=== PATIENT | female | born 1940 | race Caucasian/White ===

== ENCOUNTER 2017-04-06 12:21 | Day surgery (SDC) | payer MEDICARE ==
[2017-04-06 13:04] LABS: #Monocytes 1.3 thou/uL (0.11-0.59); #Neutrophils 13.7 thou/uL (1.40-6.50); %Basophils 0.1 % (0.0-1.0); %Eosinophils 0.2 % (0.0-10.0); %Lymphocytes 6.2 % (21.0-51.0); %Monocytes 8.3 % (0.0-10.0); Hematocrit 32.8 % (36.0-47.0); Mean Platelet Volume 6.7 fL (7.4-10.4); Red Blood Cell (RBC) Count 3.62 mill/uL (4.20-5.40); White Blood Cell (WBC) Count 16.1 thou/uL (4.8-10.8)
[2017-04-06 13:10] LABS: PTT 32.9 SEC (22.9-36.1); Prothrombin Time 14.8 SEC (12.0-14.7)
[2017-04-06] MEDS ORDERED: ceFAZolin Sodium 1 GM VIAL ONE (13:16)
[2017-04-06 13:25] LABS: Anion Gap 12 mmol/L (10-20); BUN (Urea Nitrogen) 25 mg/dL (9.8-20.1); Calc. Creatinine Clearance 0 mL/min (70-130); Calcium 8.6 mg/dL (7.8-10.44); Carbon Dioxide 26 mmol/L (23-31); Chloride 97 mmol/L (98-107); Estimated GFR-MDRD 36
--- NOTE | 2017-04-06 14:38 | CT ---
CT BRAIN WITHOUT CONTRAST: Date: 04/06/17 HISTORY: Fall in bathroom. Trauma. FINDINGS: No acute territorial infarct or hemorrhage. Extensive microangiopathic changes throughout the subcor tical and deep white matter. Moderate atrophy, predominantly of the parietal and temporal lobes. Calvarium is intact. There are air fluid levels in them axillary sinuses bilaterally. Soft tissues are unremarkable. IMPRESSION: 1. No acute intracranial abnormality. 2. Extensive microangiopathic changes. 3. Bitemporal and biparietal atrophy can be seen with Alzheimer's disease. Recommend clinical corre lation. POS: [facility]
--- NOTE | 2017-04-06 15:09 | CT ---
CT CERVICAL SPINE WITHOUT CONTRAST: Date: 04/06/17 HISTORY: Fall in bathroom. Loss of consciousness. COMPARISON: None. FINDINGS: Nondisplaced left nasal bone fracture. Extensive opacification of the maxillary sinuses bilaterally, worse on the left, with some increased density. No displaced fracture of the anterior nasal spine o f the maxilla. There is subcutaneous gas along the right cheek. No orbital floor fracture. No orbita l roof fracture. Zygoma is intact, as well as the mandibular condyles. Mandible is without fracture. Lamina papyracea is intact. IMPRESSION: 1. Nondisplaced posterior left nasal bone fracture. 2. Nondisplaced fracture of the anterior inferior nasal spine of the maxilla. 3. Dense debris within the maxillary sinuses bilaterally with high attenuation can be seen with chr onic sinusitis versus hemosinus. 4. Small volume gas involving the right cheek without a large laceration appreciated. Recommend cor relation for a penetrating wound. A nondisplaced right anterior maxillary sinus fracture cannot be e xcluded, although no displaced fracture is seen. 5. Punctate radiopaque debris along the left cheek which may be within or on the skin. POS: [facility]
[2017-04-06] MEDS ORDERED: Ondansetron HCl/PF 4 MG/2 ML Vial IVP PRN (15:58)
[2017-04-06] MEDS ORDERED: Fentanyl 100 MCG/2 ML VIAL ONE (17:04)
[2017-04-06] MEDS ORDERED: Lidocaine 2% PF 10 ML AMP (For Epidural Use) ONE (17:27)
[2017-04-06] MEDS ORDERED: Ondansetron HCl/PF 4 MG/2 ML Vial ONE (17:27)
[2017-04-06] MEDS ORDERED: Succinylcholine Chloride 20 MG/ML 10 ml SYRINGE FS ONE (17:27)
[2017-04-06] MEDS ORDERED: Dexamethasone 20 MG/5 ML VIAL ONE (17:27)
[2017-04-06] MEDS ORDERED: Propofol 200 MG/20 ML VIAL ONE (17:27)
[2017-04-06] MEDS ORDERED: Bacitracin Zinc Ointment 30 gm TUBE ONE (18:06)
[2017-04-06] MEDS ORDERED: Oxymetazoline HCl 0.05% ( 15 ML ) ONE (18:10)
[2017-04-06] MEDS ORDERED: Meperidine HCl/PF 25 MG/ML VIAL ONE (18:13)
--- NOTE | 2017-04-06 21:29 | OP ---
DATE OF OPERATION: 04/06/2017 PREOPERATIVE DIAGNOSIS: Complex upper lip laceration. POSTOPERATIVE DIAGNOSIS: Complex upper lip laceration. PROCEDURE: Complex closure of right upper lip laceration 4.5 cm. ANESTHESIA: General. PREOPERATIVE NOTE: Ms. Viera is a 77-year-old female who fell in her bathroom and hit her upper li p on a tub. She has a deep laceration on the right upper lip just under the of the nose and a nondisplaced maxillary fracture. She now presents for debridement and closure of this laceration a nd stabilization of the nasal septum. PROCEDURE IN DETAIL: After the patient received adequate general anesthesia, the patient was placed in supine position, prepped and draped in the usual standard fashion. The wound was cleaned with B etadine and then irrigated profusely. The caudal end of the septum was indeed dislocated from the n ab spine. A 4-0 Vicryl suture was then placed through the periosteum of the nasal spine and then placed through the caudal end of the septum and a [id number] suture to hold the cartilaginous s eptum into the spine. This seemed to adequately stabilize the caudal end of the septum. The deep t issues were then reapproximated, muscular stitches were then approximated with a 4-0 Vicryl suture a nd then a 4-0 Monocryl suture was used to reapproximate the subcutaneous tissues and interrupted 6-0 nylon sutures used to reapproximate the skin edges, had a laceration of the lateral nasal wall, ant erior aspect of the inferior turbinate, which was bleeding. A couple of 4-0 chromics were placed in this area to help control the bleeding and tacked together likely. Also had a small perforation in the gingival labial sulcus on the right side that we closed with a couple of 4-0 chromic sutures. Nose was then suctioned clear and bleeding seemed to be adequately controlled. Nose and mouth and s tomach were suctioned clear and the patient was awakened and taken to recovery room in stable condit ion, having tolerated the procedure well. ESTIMATED BLOOD LOSS: Less than 20 mL. SPONGE AND NEEDLE COUNTS: Correct at the end of the case. COMPLICATIONS: None.
--- NOTE | 2017-04-06 21:56 | HP ---
DATE OF CONSULTATION: 04/06/2017 CONSULTING PHYSICIAN: Dr. John Rae, ER physician. REASON FOR CONSULTATION: Deep upper lip laceration and maxillary fracture. HISTORY OF PRESENT ILLNESS: Ms. Viera is a 77-year-old female who earlier today was walking into h er bathroom and fell and hit her face on the tub in the bathroom. The witnessed the inciden t. The patient does not remember much about what happened during that incident. He denies any loss of consciousness. Other than facial pain and bleeding from the upper lip, she denies any other sym ptoms or complaints. She states that her teeth seem to match up well, although she does have some t enderness when she bites down. She denies any change in her vision or neck pain. She has a deep la ceration going underneath the sill of her nose and over to the right mesiolabial crease, it goes amber p down to the maxilla. She has been on medicine for her back and has had multiple falls recently an d feels like she is dizzy and confused while on this medication. PAST MEDICAL HISTORY: Significant for hypertension. PAST SURGICAL HISTORY: Significant for two back surgeries. ALLERGIES: She gets nauseated with CODEINE. SOCIAL HISTORY: Nonsmoker and nondrinker. FAMILY HISTORY: Noncontributory. PHYSICAL EXAMINATION: GENERAL: Well-developed, well-nourished elderly female, in mild distress. HEAD: Normocephalic, atraumatic. EYES: Pupils are equal, round, and reactive to light. Extraocular movements are intact. EARS: Tympanic membranes are intact and clear. NOSE: Shows some old blood crust around the nose, but otherwise, the dorsum of the nose is palpable and stable. No fractures or step-offs are noted. Does have some contusion of the caudal into the nose, but no palpable deviation was noted. Septum is deviated off to the right side. There is no e vidence of any intranasal laceration. Underneath the sill of her nose, she does have an extensive l aceration going across the sill and underneath the ala and then into the right mesiolabial crease. Oral cavity and oropharynx show teeth are in good repair. Occlusion appears to be normal. Maxilla and teeth are stable. She does have some tenderness when she bites down, but no motion was noted. There is some blood in the throat, but no lacerations were noted. No palpable fractures of the pal ate. Jaw is palpably stable. NECK: No significant lymphadenopathy or masses are noted. No tenderness or crepitus is noted. LUNGS: Clear to auscultation. HEART: Rate and rhythm regular without murmur or gallop. ABDOMEN: Soft, without masses, distention, or hepatosplenomegaly. EXTREMITIES: Without clubbing, cyanosis, or edema. NEUROLOGIC: Grossly intact. IMAGING STUDIES: CT scan of the face was reviewed and does show a nondisplaced fracture going throu gh the maxilla. It does not appear to go through the pterygoid bones, so it does not appear to be a complete [place], but there is no evidence of fracture across the palate. Does have some blood in her sinuses, but no other significant injuries were noted. IMPRESSION: Laceration of the upper lip, deep. I talked with her about repairing this under local or doing under anesthesia. She preferred to be done under anesthesia. PLAN: We will plan on taking her to the OR and debriding the wound and closing it under general ane sthesia. She does not feel anything needs to be done to the nondisplaced fracture of the maxilla. This should heal on its own. We will look at it when she is asleep but does not feel anything furth er needs to be done at this time. She understands the indications, benefits, risks, and complicatio ns and consents to the procedure.
== END 2017-04-06 20:00 | disposition home or self-care (01) ==
LOC: ERS 12:21 → SDC 14:58
PROVIDERS: ATTEND Otolaryngology
PROC: 0CQ0XZZ Repair Upper Lip, External Approach (ICD-10-PCS; principal; 2017-04-06)
DX: S01.511A Laceration without foreign body of lip, initial encounter (principal); I10 Essential (primary) hypertension; S01.532A Puncture wound without foreign body of oral cavity, initial encounter; S02.2XXA Fracture of nasal bones, initial encounter for closed fracture; S02.401A Maxillary fracture, unspecified side, initial encounter for closed fracture; W19.XXXA Unspecified fall, initial encounter; Y92.012 Bathroom of single-family (private) house as the place of occurrence of the external cause; Z79.52 Long term (current) use of systemic steroids; Z79.899 Other long term (current) drug therapy; Z88.5 Allergy status to narcotic agent; Z96.1 Presence of intraocular lens
CPT/HCPCS: 36415; 70450; 70486; 80048; 85025; 85610; 85730; G0390; J0690; J1100; J2001; J2175; J2405; J2704; J3010

== ENCOUNTER 2018-02-13 12:12 | Emergency (ER) | payer MEDICARE ==
[2018-02-13 13:40] LABS: #Lymphocytes 1.8 thou/uL (1.20-3.40); #Monocytes 0.6 thou/uL (0.11-0.59); #Neutrophils 6.6 thou/uL (1.40-6.50); %Basophils 0.4 % (0.0-1.0); %Eosinophils 0.1 % (0.0-10.0); %Lymphocytes 19.6 % (21.0-51.0); %Monocytes 6.5 % (0.0-10.0); %Neutrophils 73.4 % (42.0-75.0); Hemoglobin 13.4 g/dL (12.0-16.0); Mean Corpuscular Hemoglobin 29.5 pg (27.0-31.0); Mean Corpuscular Volume 86.6 fL (78.0-98.0); Platelet Count 252 thou/uL (130-400); RBC Distribution Width 14.4 % (11.5-14.5); Red Blood Cell (RBC) Count 4.56 mill/uL (4.20-5.40)
[2018-02-13] MEDS ORDERED: Morphine 4 MG/ML VIAL ONE (13:59)
[2018-02-13 14:14] LABS: ALT (SGPT) 11 U/L (8-55); AST (SGOT) 15 U/L (5-34); Albumin 4.6 g/dL (3.4-4.8); Alkaline Phosphatase 101 U/L (40-150); Anion Gap 16 mmol/L (10-20); BUN (Urea Nitrogen) 14 mg/dL (9.8-20.1); Bilirubin, Total 0.8 mg/dL (0.2-1.2); Calc. Creatinine Clearance 0 mL/min (70-130); Calcium 9.7 mg/dL (7.8-10.44); Carbon Dioxide 24 mmol/L (23-31); Chloride 101 mmol/L (98-107); Estimated GFR-MDRD 67; Globulin 2.8 g/dL (2.4-3.5); Glucose 98 mg/dL (83-110); Magnesium 2.1 mg/dL (1.6-2.6); Potassium 3.6 mmol/L (3.5-5.1); Protein, Total 7.4 g/dL (6.0-8.3); Sodium 137 mmol/L (136-145)
== END 2018-02-13 15:29 | disposition home or self-care (01) ==
LOC: ERS 12:12
DX: G62.9 Polyneuropathy, unspecified (principal); I10 Essential (primary) hypertension
CPT/HCPCS: 80053; 83735; 85025; 93005; 96374; J2270

== ENCOUNTER 2019-05-28 10:19 | Outpatient (CLI) | payer MEDICARE ==
--- NOTE | 2019-05-28 13:16 | MRI ---
MR the lumbar spine without contrast: 05/28/2019 History: Right leg pain, history of back surgery, back pain COMPARISON: 01/23/2017 TECHNIQUE: Multiplanar multisequence MR images were obtained of lumbar spine without IV contrast FINDINGS: On the basis of 5 lumbar type vertebral bodies, conus medullaris terminates at theL1 level. The sagittal STIR imaging demonstrates no focal area of osseous marrow edema. Anterolisthesis of L4 o n L5 noted measuring 7 mm, stable when compared to the prior examination. There is a lesion within the upper pole of the right kidney medially measuring 8 mm, not seen on the prior examination. It is T1 hyperintense, thus not consistent with a cyst. CT of the abdomen with and without contrast using a renal mass protocol is thus advised. T12-L1:There is disc space narrowing with disc desiccation and mild bilateral facet hypertrophy causi ng no significant central canal or neural foraminal stenosis. L1-2:There is disc space narrowing and disc desiccation with mild disc bulge. Bilateral facet hypertr ophy, left greater than right. Mild left neural foraminal stenosis. No central canal or right neural foraminal stenosis. L2-3:There is disc space narrowing with disc desiccation and anterior osteophyte formation. Bilateral facet hypertrophy noted. There is a foraminal and post foraminal disc protrusion on the left with moderate left neural foraminal stenosis. No significant central canal or right neural foraminal steno sis. Findings are unchanged when compared to the prior examination. L3-4:There is disc space narrowing and disc desiccation. Bilateral facet hypertrophy. Mild disc bulge . Bilateral laminectomy change. Bilateral facet hypertrophy with severe right and moderate left neural foraminal stenosis, similar when compared to the prior examination. L4-5:Bilateral laminectomy changes noted. Prominent disc space narrowing with disc desiccation. No ce ntral canal stenosis. Prominent bilateral facet hypertrophy and hypertrophy of the ligamentum flavum. Severe stable right neural foraminal stenosis and moderate stable left neural foraminal steno sis. L5-S1:Mild bilateral facet hypertrophy. Mild bilateral neural foraminal stenosis, left greater than r ight. No central canal stenosis. IMPRESSION: Multilevel degenerative change as described above, not significantly changed when compared to the dylan or examination. The most significant neural foraminal stenosis is on the right at L3-4 and L4-5. Nonspecific small right renal lesion for which CT examination of the abdomen with and without contras t using renal mass protocol advised. CODE T
== END 2019-05-28 10:20 | disposition home or self-care (01) ==
LOC: TBSIIMAG 10:19
PROVIDERS: ATTEND Anesthesiology Pain Medicine
DX: M47.26 Other spondylosis with radiculopathy, lumbar region (principal); M48.061 Spinal stenosis, lumbar region without neurogenic claudication; N28.9 Disorder of kidney and ureter, unspecified
CPT/HCPCS: 72148

== ENCOUNTER 2023-02-17 12:04 | Inpatient (IN) | payer MEDICARE ==
[2023-02-17 13:53] VITALS: BMI 21.6
[2023-02-17] MEDS ORDERED: Ondansetron ODT 4 MG TAB PO PRN (14:42)
[2023-02-17] MEDS ORDERED: hydrOXYzine 25 MG TAB PO PRN (14:49)
[2023-02-17] MEDS: diphenhydrAMINE 25 MG CAP PO PRN (16:26)
[2023-02-17] MEDS: Lorazepam 0.5 MG TAB PO PRN ×2 (17:34→22:14)
[2023-02-17] MEDS: Gabapentin 300 MG CAP PO SCH (20:57)
[2023-02-17] MEDS: Losartan 25 MG TAB PO SCH (20:57)
[2023-02-18] MEDS ORDERED: diphenhydrAMINE 50 MG/ML VIAL IVP SCH (00:30)
[2023-02-18 06:12] LABS: #Basophils 0.1 thou/uL (0.0-0.2); #Eosinphils 0.1 thou/uL (0.0-0.7); #Monocytes 1.1 thou/uL (0.11-0.59); #Neutrophils 7.7 thou/uL (1.40-6.50); %Basophils 0.5 % (0.0-1.0); %Eosinophils 0.7 % (0.0-10.0); %Lymphocytes 30.9 % (21.0-51.0); %Monocytes 8.7 % (0.0-10.0); %Neutrophils 58.9 % (42.0-75.0); Hemoglobin 13.7 g/dL (12.0-16.0); Mean Corpuscular HGB CONC 33.4 g/dL (32.0-36.0); Mean Corpuscular Hemoglobin 31.6 pg (27.0-31.0); Mean Corpuscular Volume 94.5 fl (78.0-98.0); Mean Platelet Volume 11.3 fL (7.4-10.4); Platelet Count 358 10x3/uL (130-400); RBC Distribution Width 16.8 % (11.5-14.5); Red Blood Cell (RBC) Count 4.34 mill/uL (4.20-5.40)
[2023-02-18 06:37] LABS: ALT (SGPT) 68 U/L (8-55); AST (SGOT) 47 U/L (5-34); Albumin 4.3 g/dL (3.4-4.8); Alkaline Phosphatase 430 U/L (40-110); Anion Gap 19 mmol/L (10-20); BUN (Urea Nitrogen) 16 mg/dL (9.8-20.1); Bilirubin, Total 7.8 mg/dL (0.2-1.2); Calc. Creatinine Clearance 47 mL/min (70-130); Carbon Dioxide 21 mmol/L (23-31); Chloride 102 mmol/L (98-107); Estimated GFR 66; Globulin 3.7 g/dL (2.4-3.5); Glucose 121 mg/dL (83-110); Potassium 3.6 mmol/L (3.5-5.1); Sodium 138 mmol/L (136-145)
[2023-02-18] MEDS: diphenhydrAMINE 25 MG CAP PO PRN ×2 (08:53→21:22)
[2023-02-18] MEDS: Gabapentin 300 MG CAP PO SCH ×2 (08:53→21:22)
[2023-02-18] MEDS ORDERED: Amlodipine 5 MG TAB PO SCH (09:00)
[2023-02-18] MEDS ORDERED: Iopamidol 30 ML ONE (12:42)
[2023-02-18] MEDS ORDERED: Indomethacin 50 MG SUPP ONE (12:49)
[2023-02-18] MEDS ORDERED: LevoFLOXacin 500 mg/D5W 100 ML BAG ONE (13:21)
[2023-02-18] MEDS ORDERED: Rocuronium Bromide 10 MG/ML (10ML VIAL) ONE (14:05)
[2023-02-18] MEDS ORDERED: Lidocaine 1% PF 5 ML VIAL ONE (14:05)
[2023-02-18] MEDS ORDERED: Ondansetron PF 4 MG/2 ML Vial ONE (14:05)
[2023-02-18] MEDS ORDERED: PROPOFOL 200 MG/20 ML VIAL ONE (14:05)
[2023-02-18] MEDS ORDERED: Esmolol 100 MG/10 ML VIAL ONE (14:05)
[2023-02-18] MEDS ORDERED: Dexamethasone 20 MG/5 ML VIAL ONE (14:05)
[2023-02-18] MEDS ORDERED: Succinylcholine 200 MG/10 ml SYRINGE FS ONE (14:05)
[2023-02-18] MEDS ORDERED: fentaNYL 50 mcg/mL 1 mL Vial ONE (14:38)
[2023-02-18 19:02] VITALS: BP 158/75; TEMP 97.4
[2023-02-18] MEDS: Losartan 25 MG TAB PO SCH (21:21)
[2023-02-18] MEDS: Lorazepam 0.5 MG TAB PO PRN (21:22)
[2023-02-19] MEDS ORDERED: LevoFLOXacin 750 mg/D5W 750 MG in Premix Bag 1 BAG IVPB SCH (13:00)
== END 2023-02-18 21:40 | disposition short-term general hospital (02) | DRG 446 ==
LOC: T4-A 13:05 → OBSVTOIN 14:52
PROVIDERS: ADMIT Family Medicine; ATTEND Hospitalist
PROC: 0F998ZZ Drainage of Common Bile Duct, Via Natural or Artificial Opening Endoscopic (ICD-10-PCS; principal; 2023-02-18)
PROC: BF111ZZ Fluoroscopy of Biliary and Pancreatic Ducts using Low Osmolar Contrast (ICD-10-PCS; 2023-02-18)
DX: K83.1 Obstruction of bile duct (principal); I10 Essential (primary) hypertension; M54.16 Radiculopathy, lumbar region; Z90.49 Acquired absence of other specified parts of digestive tract; Z88.5 Allergy status to narcotic agent; Z98.890 Other specified postprocedural states; L29.9 Pruritus, unspecified; Z79.899 Other long term (current) drug therapy; K57.90 Diverticulosis of intestine, part unspecified, without perforation or abscess without bleeding; K76.89 Other specified diseases of liver
CPT/HCPCS: 36415; 80053; 85025; 93005; 93010; J1100; J1956; J2405; J2704; J3010; Q9967

== ENCOUNTER 2023-03-11 12:44 | Inpatient (IN) | payer MEDICARE ==
[~2023-03-11 12:44] MED LIST: Iopamidol-370 76% 500 ML MDV (1 ML CHARGE) ONE
[2023-03-11] MEDS ORDERED: Lactated Ringer's 1,000 ML IV SCH (13:45)
[2023-03-11 14:27] LABS: #Eosinphils 0.1 thou/uL (0.0-0.7); #Neutrophils 9.5 thou/uL (1.40-6.50); %Basophils 0.2 % (0.0-1.0); %Eosinophils 0.8 % (0.0-10.0); %Lymphocytes 16.5 % (21.0-51.0); %Monocytes 7.9 % (0.0-10.0); %Neutrophils 74.1 % (42.0-75.0); Hematocrit 32.8 % (36.0-47.0); Hemoglobin 11.1 g/dL (12.0-16.0); Mean Corpuscular HGB CONC 33.8 g/dL (32.0-36.0); Mean Corpuscular Hemoglobin 31.4 pg (27.0-31.0); Mean Corpuscular Volume 92.9 fl (78.0-98.0); Mean Platelet Volume 9.8 fL (7.4-10.4); Platelet Count 297 10x3/uL (130-400); RBC Distribution Width 13.2 % (11.5-14.5); Red Blood Cell (RBC) Count 3.53 mill/uL (4.20-5.40); White Blood Cell (WBC) Count 12.8 10x3/uL (4.8-10.8)
[2023-03-11 15:02] LABS: BUN (Urea Nitrogen) 7 mg/dL (9.8-20.1); Calc. Creatinine Clearance 61 mL/min (70-130); Calcium 9.2 mg/dL (7.8-10.44); Carbon Dioxide 28 mmol/L (23-31); Chloride 101 mmol/L (98-107); Estimated GFR 88; Glucose 97 mg/dL (83-110); Potassium 3.7 mmol/L (3.5-5.1); Sodium 137 mmol/L (136-145)
[2023-03-11 15:18] LABS: Anion Gap 12 mmol/L (10-20)
[2023-03-11] MEDS: Morphine 4 MG/ML VIAL SLOW IVP PRN ×2 (16:33→20:32)
[2023-03-11 17:01] LABS: Bacteria/HPF None Seen HPF (None Seen); Bilirubin Negative (Negative); Blood, Urine Negative (Negative); Clarity Clear (Clear); Glucose, Urine (Dipstick) Normal (Negative); Ketone, Urine Negative (Negative); Leukocyte Negative Leu/uL (Negative); Nitrite Negative (Negative); Protein, Urine (Dipstick) Negative (Neg-Trace); RBC/HPF 0-3 HPF (0-3); Specific Gravity, Urine 1.009 (1.002-1.036); Squamous Epithelial 0-3 HPF (0-3); Urobilinogen Normal mg/dL (Less than 2); WBC/HPF 0-3 HPF (0-3); pH, Urine 7.5 (5.0-9.0)
[2023-03-11] MEDS: Lactated Ringer's 1,000 ML IV SCH (20:09)
[2023-03-11] MEDS: Gabapentin 300 MG CAP PO SCH (20:33)
[2023-03-11] MEDS: Famotidine/PF 20 mg/2ml Vial SLOW IVP SCH (20:34)
[2023-03-11] MEDS: Latanoprost 0.005% Ophth Soln 2.5 ml Bottle EA EYE SCH (20:34)
[2023-03-11] MEDS: Heparin 5,000 UNITS/ML VIAL SC SCH (20:34)
[2023-03-12] MEDS: Morphine 4 MG/ML VIAL SLOW IVP PRN ×3 (01:00→16:36)
[2023-03-12] MEDS: Lactated Ringer's 1,000 ML IV SCH ×6 (01:25→20:15)
[2023-03-12 06:22] LABS: #Basophils 0.1 thou/uL (0.0-0.2); #Eosinphils 0.2 thou/uL (0.0-0.7); #Monocytes 1.2 thou/uL (0.11-0.59); #Neutrophils 8.1 thou/uL (1.40-6.50); %Basophils 0.4 % (0.0-1.0); %Eosinophils 1.6 % (0.0-10.0); %Lymphocytes 22.2 % (21.0-51.0); %Monocytes 9.6 % (0.0-10.0); %Neutrophils 65.4 % (42.0-75.0); Hematocrit 32.7 % (36.0-47.0); Hemoglobin 11.1 g/dL (12.0-16.0); Mean Corpuscular HGB CONC 33.9 g/dL (32.0-36.0); Mean Corpuscular Hemoglobin 31.2 pg (27.0-31.0); Mean Corpuscular Volume 91.9 fl (78.0-98.0); Mean Platelet Volume 9.9 fL (7.4-10.4); Platelet Count 283 10x3/uL (130-400); RBC Distribution Width 13.1 % (11.5-14.5); Red Blood Cell (RBC) Count 3.56 mill/uL (4.20-5.40); White Blood Cell (WBC) Count 12.4 10x3/uL (4.8-10.8)
[2023-03-12 06:46] LABS: Anion Gap 13 mmol/L (10-20); BUN (Urea Nitrogen) 5 mg/dL (9.8-20.1); Calc. Creatinine Clearance 65 mL/min (70-130); Calcium 8.9 mg/dL (7.8-10.44); Carbon Dioxide 26 mmol/L (23-31); Chloride 100 mmol/L (98-107); Estimated GFR 90; Glucose 70 mg/dL (83-110); Lipase 657 U/L (8-78); Potassium 3.9 mmol/L (3.5-5.1); Sodium 135 mmol/L (136-145)
[2023-03-12] MEDS: Heparin 5,000 UNITS/ML VIAL SC SCH ×2 (08:40→20:19)
[2023-03-12] MEDS: Famotidine/PF 20 mg/2ml Vial SLOW IVP SCH ×2 (08:40→20:18)
[2023-03-12] MEDS: Multivitamin W/ Minerals 1 TAB PO SCH (08:40)
[2023-03-12] MEDS: Gabapentin 300 MG CAP PO SCH ×2 (08:40→20:15)
[2023-03-12] MEDS: Latanoprost 0.005% Ophth Soln 2.5 ml Bottle EA EYE SCH (20:20)
[2023-03-12] MEDS: HYDROcodone/Acetaminophen 5/325 mg Tablet PO PRN (20:22)
[2023-03-13 05:41] LABS: #Basophils 0.1 thou/uL (0.0-0.2); #Eosinphils 0.2 thou/uL (0.0-0.7); #Monocytes 1.3 thou/uL (0.11-0.59); #Neutrophils 11.6 thou/uL (1.40-6.50); %Basophils 0.4 % (0.0-1.0); %Eosinophils 1.4 % (0.0-10.0); %Lymphocytes 12.3 % (21.0-51.0); %Monocytes 8.5 % (0.0-10.0); %Neutrophils 76.6 % (42.0-75.0); Hematocrit 32.9 % (36.0-47.0); Hemoglobin 10.9 g/dL (12.0-16.0); Mean Corpuscular HGB CONC 33.1 g/dL (32.0-36.0); Mean Corpuscular Hemoglobin 30.7 pg (27.0-31.0); Mean Corpuscular Volume 92.7 fl (78.0-98.0); Mean Platelet Volume 9.8 fL (7.4-10.4); Platelet Count 267 10x3/uL (130-400); Red Blood Cell (RBC) Count 3.55 mill/uL (4.20-5.40); White Blood Cell (WBC) Count 15.2 10x3/uL (4.8-10.8)
[2023-03-13] MEDS: Lactated Ringer's 1,000 ML IV SCH ×3 (05:48→21:48)
[2023-03-13 06:13] LABS: Anion Gap 13 mmol/L (10-20); BUN (Urea Nitrogen) 5 mg/dL (9.8-20.1); Calc. Creatinine Clearance 68 mL/min (70-130); Carbon Dioxide 26 mmol/L (23-31); Chloride 100 mmol/L (98-107); Estimated GFR 91; Glucose 84 mg/dL (83-110); Lipase 52 U/L (8-78); Potassium 3.7 mmol/L (3.5-5.1); Sodium 135 mmol/L (136-145)
[2023-03-13] MEDS: Famotidine/PF 20 mg/2ml Vial SLOW IVP SCH ×2 (08:10→21:54)
[2023-03-13] MEDS: Gabapentin 300 MG CAP PO SCH ×2 (08:10→21:55)
[2023-03-13] MEDS: Multivitamin W/ Minerals 1 TAB PO SCH (08:10)
[2023-03-13] MEDS: Heparin 5,000 UNITS/ML VIAL SC SCH ×2 (08:11→21:57)
[2023-03-13] MEDS: Ondansetron PF 4 MG/2 ML Vial IVP PRN (09:09)
[2023-03-13] MEDS: Morphine 4 MG/ML VIAL SLOW IVP PRN ×2 (09:13→21:52)
[2023-03-13] MEDS: Acetaminophen 325 MG TAB PO PRN (14:53)
[2023-03-13] MEDS ORDERED: Vancomycin 1.5 GRAM/300 ML BAG 1.5 GM in Premix Bag 1 BAG IVPB SCH (16:15)
[2023-03-13 16:28] LABS: Bilirubin Negative (Negative); Blood, Urine Negative (Negative); Clarity Clear (Clear); Glucose, Urine (Dipstick) Normal (Negative); Ketone, Urine 10 mg/dL (Negative); Leukocyte Negative Leu/uL (Negative); Nitrite Negative (Negative); Protein, Urine (Dipstick) Negative (Neg-Trace); Specific Gravity, Urine 1.009 (1.002-1.036); Urobilinogen Normal mg/dL (Less than 2); pH, Urine 7.5 (5.0-9.0)
[2023-03-13] MEDS: Cefepime 2 GM in Sodium Chloride 0.9% 100 ML IVPB SCH (21:55)
[2023-03-13] MEDS: Latanoprost 0.005% Ophth Soln 2.5 ml Bottle EA EYE SCH (21:55)
[2023-03-14] MEDS: Lactated Ringer's 1,000 ML IV SCH ×3 (02:10→11:51)
[2023-03-14] MEDS: Vancomycin 1 GM in Premix Bag 1 BAG IVPB SCH ×2 (06:12→17:36)
[2023-03-14] MEDS: Morphine 4 MG/ML VIAL SLOW IVP PRN ×2 (06:12→20:42)
[2023-03-14] MEDS: Ondansetron PF 4 MG/2 ML Vial IVP PRN (06:15)
[2023-03-14 06:56] LABS: #Basophils 0.1 thou/uL (0.0-0.2); #Eosinphils 0.2 thou/uL (0.0-0.7); #Monocytes 1.6 thou/uL (0.11-0.59); #Neutrophils 13.7 thou/uL (1.40-6.50); %Basophils 0.3 % (0.0-1.0); %Eosinophils 1.1 % (0.0-10.0); %Lymphocytes 16.5 % (21.0-51.0); %Monocytes 8.3 % (0.0-10.0); %Neutrophils 72.9 % (42.0-75.0); Hematocrit 33.5 % (36.0-47.0); Hemoglobin 11.2 g/dL (12.0-16.0); Mean Corpuscular HGB CONC 33.4 g/dL (32.0-36.0); Mean Corpuscular Hemoglobin 31.1 pg (27.0-31.0); Mean Corpuscular Volume 93.1 fl (78.0-98.0); Mean Platelet Volume 10.2 fL (7.4-10.4); Platelet Count 302 10x3/uL (130-400); RBC Distribution Width 13.2 % (11.5-14.5); White Blood Cell (WBC) Count 18.8 10x3/uL (4.8-10.8)
[2023-03-14 07:33] LABS: ALT (SGPT) 24 U/L (8-55); AST (SGOT) 18 U/L (5-34); Albumin 3.2 g/dL (3.4-4.8); Alkaline Phosphatase 119 U/L (40-110); Anion Gap 11 mmol/L (10-20); BUN (Urea Nitrogen) 5 mg/dL (9.8-20.1); Bilirubin, Total 0.7 mg/dL (0.2-1.2); Calc. Creatinine Clearance 57 mL/min (70-130); Calcium 8.8 mg/dL (7.8-10.44); Carbon Dioxide 27 mmol/L (23-31); Chloride 99 mmol/L (98-107); Estimated GFR 87; Glucose 79 mg/dL (83-110); Lipase 37 U/L (8-78); Potassium 3.3 mmol/L (3.5-5.1); Protein, Total 6.2 g/dL (5.8-8.1); Sodium 134 mmol/L (136-145)
[2023-03-14] MEDS: Cefepime 2 GM in Sodium Chloride 0.9% 100 ML IVPB SCH ×2 (08:39→20:39)
[2023-03-14] MEDS: Heparin 5,000 UNITS/ML VIAL SC SCH ×2 (08:39→20:39)
[2023-03-14] MEDS: Gabapentin 300 MG CAP PO SCH ×2 (08:39→20:39)
[2023-03-14] MEDS: Famotidine/PF 20 mg/2ml Vial SLOW IVP SCH ×2 (08:39→20:39)
[2023-03-14] MEDS: Multivitamin W/ Minerals 1 TAB PO SCH (08:40)
[2023-03-14] MEDS ORDERED: Loperamide HCl 2 MG CAP PO PRN (08:47)
[2023-03-14] MEDS ORDERED: Electrolyte Replacement Protocol 1 EACH FS SCH (09:00)
[2023-03-14] MEDS ORDERED: Potassium Chloride 20 MEQ TAB PO SCH (09:30)
[2023-03-14] MEDS ORDERED: Electrolyte Replacement Protocol FS PRN (09:30)
[2023-03-14] MEDS: Saccharomyces boulardii 250 MG CAP PO SCH (11:01)
[2023-03-14 11:15] VITALS: BMI 22.3
[2023-03-14 14:23] LABS: Potassium 3.7 mmol/L (3.5-5.1)
[2023-03-14] MEDS: Latanoprost 0.005% Ophth Soln 2.5 ml Bottle EA EYE SCH (20:40)
[2023-03-15] MEDS: Acetaminophen 325 MG TAB PO PRN (01:39)
[2023-03-15] MEDS: Lactated Ringer's 1,000 ML IV SCH ×2 (01:40→11:17)
[2023-03-15 06:11] LABS: #Basophils 0.1 thou/uL (0.0-0.2); #Eosinphils 0.3 thou/uL (0.0-0.7); #Monocytes 0.9 thou/uL (0.11-0.59); #Neutrophils 6.7 thou/uL (1.40-6.50); %Basophils 0.7 % (0.0-1.0); %Lymphocytes 23.2 % (21.0-51.0); %Monocytes 8.8 % (0.0-10.0); %Neutrophils 63.1 % (42.0-75.0); Hematocrit 34.8 % (36.0-47.0); Hemoglobin 11.4 g/dL (12.0-16.0); Mean Corpuscular HGB CONC 32.8 g/dL (32.0-36.0); Mean Corpuscular Hemoglobin 31.6 pg (27.0-31.0); Mean Platelet Volume 10.2 fL (7.4-10.4); Platelet Count 266 10x3/uL (130-400); RBC Distribution Width 13.3 % (11.5-14.5); Red Blood Cell (RBC) Count 3.61 mill/uL (4.20-5.40); White Blood Cell (WBC) Count 10.7 10x3/uL (4.8-10.8)
[2023-03-15 06:25] LABS: Mean Corpuscular Volume 96.4 fl (78.0-98.0)
[2023-03-15 06:31] LABS: Vancomycin, Trough 17.4 ug/mL
[2023-03-15 06:34] LABS: Anion Gap 12 mmol/L (10-20); BUN (Urea Nitrogen) 4 mg/dL (9.8-20.1); Calc. Creatinine Clearance 66 mL/min (70-130); Calcium 8.9 mg/dL (7.8-10.44); Carbon Dioxide 24 mmol/L (23-31); Chloride 107 mmol/L (98-107); Estimated GFR 90; Glucose 92 mg/dL (83-110); Potassium 3.7 mmol/L (3.5-5.1); Sodium 139 mmol/L (136-145)
[2023-03-15] MEDS: Vancomycin 1 GM in Premix Bag 1 BAG IVPB SCH ×2 (06:44→17:14)
[2023-03-15] MEDS: Multivitamin W/ Minerals 1 TAB PO SCH (08:38)
[2023-03-15] MEDS: Saccharomyces boulardii 250 MG CAP PO SCH (08:38)
[2023-03-15] MEDS: Cefepime 2 GM in Sodium Chloride 0.9% 100 ML IVPB SCH ×2 (08:38→20:42)
[2023-03-15] MEDS: Gabapentin 300 MG CAP PO SCH ×2 (08:39→20:42)
[2023-03-15] MEDS: Heparin 5,000 UNITS/ML VIAL SC SCH ×2 (08:39→20:42)
[2023-03-15] MEDS: Famotidine/PF 20 mg/2ml Vial SLOW IVP SCH ×2 (08:39→20:42)
[2023-03-15] MEDS ORDERED: Loperamide HCl 2 MG CAP PO PRN (09:21)
[2023-03-15] MEDS: HYDROcodone/Acetaminophen 5/325 mg Tablet PO PRN ×2 (11:14→20:50)
[2023-03-15] MEDS: Melatonin 3 MG TAB PO PRN (20:43)
[2023-03-15] MEDS: Ondansetron PF 4 MG/2 ML Vial IVP PRN (20:43)
[2023-03-15] MEDS: Latanoprost 0.005% Ophth Soln 2.5 ml Bottle EA EYE SCH (20:43)
[2023-03-16] MEDS: Lactated Ringer's 1,000 ML IV SCH (01:04)
[2023-03-16] MEDS: Vancomycin 1 GM in Premix Bag 1 BAG IVPB SCH (05:47)
[2023-03-16] MEDS: HYDROcodone/Acetaminophen 5/325 mg Tablet PO PRN ×2 (05:56→20:52)
[2023-03-16 06:21] LABS: #Basophils 0.1 thou/uL (0.0-0.2); #Eosinphils 0.3 thou/uL (0.0-0.7); #Monocytes 0.7 thou/uL (0.11-0.59); #Neutrophils 5.3 thou/uL (1.40-6.50); %Basophils 0.7 % (0.0-1.0); %Eosinophils 2.7 % (0.0-10.0); %Lymphocytes 29.6 % (21.0-51.0); %Monocytes 7.6 % (0.0-10.0); %Neutrophils 57.8 % (42.0-75.0); Hematocrit 32.4 % (36.0-47.0); Hemoglobin 10.6 g/dL (12.0-16.0); Mean Corpuscular HGB CONC 32.7 g/dL (32.0-36.0); Mean Corpuscular Hemoglobin 30.9 pg (27.0-31.0); Mean Corpuscular Volume 94.5 fl (78.0-98.0); Mean Platelet Volume 9.9 fL (7.4-10.4); Platelet Count 249 10x3/uL (130-400); RBC Distribution Width 13.2 % (11.5-14.5); Red Blood Cell (RBC) Count 3.43 mill/uL (4.20-5.40); White Blood Cell (WBC) Count 9.1 10x3/uL (4.8-10.8)
[2023-03-16 06:54] LABS: Anion Gap 13 mmol/L (10-20); BUN (Urea Nitrogen) 5 mg/dL (9.8-20.1); Calc. Creatinine Clearance 69 mL/min (70-130); Calcium 8.8 mg/dL (7.8-10.44); Carbon Dioxide 24 mmol/L (23-31); Chloride 106 mmol/L (98-107); Estimated GFR 91; Glucose 78 mg/dL (83-110); Potassium 3.7 mmol/L (3.5-5.1); Sodium 139 mmol/L (136-145)
[2023-03-16] MEDS: Cefepime 2 GM in Sodium Chloride 0.9% 100 ML IVPB SCH (08:09)
[2023-03-16] MEDS: Gabapentin 300 MG CAP PO SCH ×2 (08:09→20:48)
[2023-03-16] MEDS: Saccharomyces boulardii 250 MG CAP PO SCH (08:10)
[2023-03-16] MEDS: Heparin 5,000 UNITS/ML VIAL SC SCH ×2 (08:10→20:48)
[2023-03-16] MEDS: Multivitamin W/ Minerals 1 TAB PO SCH (08:10)
[2023-03-16] MEDS: Famotidine/PF 20 mg/2ml Vial SLOW IVP SCH ×2 (08:10→20:49)
[2023-03-16] MEDS: Temazepam 15 MG CAP PO SCH (20:48)
[2023-03-16] MEDS: Latanoprost 0.005% Ophth Soln 2.5 ml Bottle EA EYE SCH (20:49)
[2023-03-17 06:21] LABS: Prothrombin Time 13.2 sec (12.0-14.7)
[2023-03-17] MEDS ORDERED: fentaNYL 50 mcg/mL 1 mL Vial ONE (06:21)
[2023-03-17] MEDS ORDERED: Promethazine HCl 25 MG/ML VIAL IM PRN (07:15)
[2023-03-17] MEDS ORDERED: Ondansetron HCl/PF 4 MG/2 ML Vial IVP PRN (07:15)
[2023-03-17] MEDS ORDERED: Bupivacaine 0.25% HCL 30 ML VIAL ONE (07:26)
[2023-03-17] MEDS ORDERED: Lidocaine 2% PF 5 ML VIAL ONE (07:26)
[2023-03-17] MEDS ORDERED: EPINEPHrine 1 MG/ML AMP ONE (07:26)
[2023-03-17] MEDS ORDERED: Ketorolac Tromethamine 30 MG/ML VIAL ONE (07:32)
[2023-03-17] MEDS ORDERED: CEFAZOLIN 2 GM VIAL ONE (07:32)
[2023-03-17] MEDS ORDERED: Sodium Chloride 0.9% 100 ML ONE (07:32)
[2023-03-17] MEDS ORDERED: PROPOFOL 200 MG/20 ML VIAL ONE (07:55)
[2023-03-17] MEDS ORDERED: Ondansetron PF 4 MG/2 ML Vial ONE (07:55)
[2023-03-17] MEDS: Multivitamin W/ Minerals 1 TAB PO SCH (09:14)
[2023-03-17] MEDS: Famotidine/PF 20 mg/2ml Vial SLOW IVP SCH ×2 (09:14→20:32)
[2023-03-17] MEDS: Gabapentin 300 MG CAP PO SCH ×2 (09:14→20:31)
[2023-03-17] MEDS: Heparin 5,000 UNITS/ML VIAL SC SCH ×2 (09:15→20:32)
[2023-03-17] MEDS: Saccharomyces boulardii 250 MG CAP PO SCH (09:15)
[2023-03-17] MEDS ORDERED: Lidocaine 4% Patch TD SCH (09:45)
[2023-03-17] MEDS: Lidocaine 4% Patch TD SCH (10:09)
[2023-03-17] MEDS: HYDROcodone/Acetaminophen 5/325 mg Tablet PO PRN (20:31)
[2023-03-17] MEDS: Temazepam 15 MG CAP PO SCH (20:31)
[2023-03-17] MEDS: Melatonin 3 MG TAB PO PRN (20:31)
[2023-03-17] MEDS: Latanoprost 0.005% Ophth Soln 2.5 ml Bottle EA EYE SCH (20:32)
[2023-03-17] MEDS ORDERED: Transdermal Patch Removal TOP SCH (22:00)
[2023-03-18] MEDS: Famotidine/PF 20 mg/2ml Vial SLOW IVP SCH (07:54)
[2023-03-18] MEDS: Gabapentin 300 MG CAP PO SCH (07:54)
[2023-03-18] MEDS: Heparin 5,000 UNITS/ML VIAL SC SCH (07:54)
[2023-03-18] MEDS: Multivitamin W/ Minerals 1 TAB PO SCH (07:55)
[2023-03-18] MEDS: Saccharomyces boulardii 250 MG CAP PO SCH (07:55)
[2023-03-18 08:40] VITALS: BP 162/67; TEMP 98.3
[2023-03-18] MEDS ORDERED: Lidocaine 4% Patch TD SCH (09:00)
[2023-03-18] MEDS: Lidocaine 4% Patch TD SCH (09:48)
== END 2023-03-18 10:25 | disposition home or self-care (01) | DRG 423 ==
LOC: INTOOBSV 13:17 → T4-A 13:17 → OBSVTOIN 03-12 11:59
PROVIDERS: ADMIT Hospitalist; ATTEND Family Medicine
PROC: 0JH60WZ Insertion of Totally Implantable Vascular Access Device into Chest Subcutaneous Tissue and Fascia, Open Approach (ICD-10-PCS; principal; 2023-03-17)
PROC: 02HV33Z Insertion of Infusion Device into Superior Vena Cava, Percutaneous Approach (ICD-10-PCS; 2023-03-17)
PROC: B5181ZA Fluoroscopy of Superior Vena Cava using Low Osmolar Contrast, Guidance (ICD-10-PCS; 2023-03-17)
PROC: 3E033XZ Introduction of Vasopressor into Peripheral Vein, Percutaneous Approach (ICD-10-PCS; 2023-03-17)
DX: C25.3 Malignant neoplasm of pancreatic duct (principal); K85.90 Acute pancreatitis without necrosis or infection, unspecified; E44.0 Moderate protein-calorie malnutrition; K86.89 Other specified diseases of pancreas; I10 Essential (primary) hypertension; Z51.5 Encounter for palliative care; Z66 Do not resuscitate; D72.829 Elevated white blood cell count, unspecified; E86.0 Dehydration; Z88.5 Allergy status to narcotic agent; Z79.899 Other long term (current) drug therapy; Z68.22 Body mass index [BMI] 22.0-22.9, adult; Z90.49 Acquired absence of other specified parts of digestive tract; Z90.710 Acquired absence of both cervix and uterus; Z98.890 Other specified postprocedural states; Z80.3 Family history of malignant neoplasm of breast
CPT/HCPCS: 36415; 71045; 71046; 74177; 80048; 80053; 80202; 81001; 81003; 82150; 83690; 84478; 85025; 85610; 87040; 96374; 96375; 96376; G0378; J0171; J0692; J1642; J1644; J1885; J2001; J2270; J2405; J2704; J3010; J3370; J3370-JW; J3490; J7120; Q9967; S0020; S0028

== ENCOUNTER 2025-02-14 09:11 | Outpatient (CLI) | payer MEDICARE ==
[2025-02-14] MEDS ORDERED: Iopamidol 370 76% 100 ML VIAL ONE (09:57)
== END 2025-02-14 09:12 | disposition home or self-care (01) ==
LOC: CT 09:11
PROVIDERS: ATTEND Nurse Practitioner Adult Health
DX: C25.3 Malignant neoplasm of pancreatic duct (principal); R53.1 Weakness; R59.0 Localized enlarged lymph nodes
CPT/HCPCS: 71260; 74177; J1642; Q9967

== ENCOUNTER 2025-05-13 09:02 | Outpatient (CLI) | payer MEDICARE ==
[2025-05-13] MEDS ORDERED: Iopamidol 370 76% 100 ML VIAL ONE (11:52)
== END 2025-05-13 09:03 | disposition home or self-care (01) ==
LOC: CT 09:02
PROVIDERS: ATTEND Internal Medicine Hematology & Oncology
DX: C25.3 Malignant neoplasm of pancreatic duct (principal); R53.1 Weakness; K76.0 Fatty (change of) liver, not elsewhere classified; Z98.890 Other specified postprocedural states
CPT/HCPCS: 71260; 74177; J1642; Q9967